=== PATIENT | female | born 1995 | race Caucasian/White ===

== ENCOUNTER 2020-06-11 08:10 | Outpatient (CLI) | payer OTHER ==
[2020-06-11] MEDS ORDERED: GADOBUTROL 7.5 MMOL/7.5 ML VIAL ONE (08:40)
[2020-06-11] MEDS ORDERED: GADOBUTROL 7.5 MMOL/7.5 ML VIAL IVP ONE (09:21)
--- NOTE | 2020-06-11 10:09 | MRI Report ---
PROCEDURE: Brain W/WO INDICATIONS: VERTIGO, DIZZINESS, GIDDINESS CONTRAST: IV CONTRAST: Gadavist ml: 5 TECHNIQUE: Noncontrast axial T1 spin echo, axial T2 fast spin echo, sagittal and axial FLAIR, coronal T2 fast sp in echo, axial gradient echo, axial diffusion and ADC through the brain. After the administration of contrast, axial and coronal T1 spin echo with fat saturation through the brain. COMPARISON: None. FINDINGS: Image quality: Excellent. CSF spaces: Basal cisterns are patent. No extra-axial fluid collections. Ventricles are normal in size and shape. Brain: No midline shift. No intracranial bleeds or masses. No abnormal intracranial enhancement. There is cerebral volume loss for age. There is periventricular white matter chronic small vessel is chemic change. The brainstem appears normal. Diffusion-weighted images demonstrate no acute ischemi c insults. No chronic ischemic insults. Normal intravascular flow voids are present. Skull and face: Calvarial marrow is normal in signal. Orbits appear normal. Sinuses: Sinuses and mastoids appear clear. IMPRESSION: Normal for age, source of current symptomatology is not found. No mass or hydrocephalus is seen, no ischemic injury or inflammatory process is found. Reviewed by: Pankaj Zuleta MD on 06/11/2020 10:07 AM PDT Approved by: Pankaj Zuleta MD on 06/11/2020 10:07 AM PDT Station ID: [id number]
== END 2020-06-11 08:11 | disposition home or self-care (01) ==
LOC: DI 08:10
PROVIDERS: ATTEND Student in an Organized Health Care Education/Training Program
DX: R42 Dizziness and giddiness (principal)
CPT/HCPCS: 70553; A9585

== ENCOUNTER 2020-09-13 12:40 | Outpatient (CLI) | payer OTHER ==
[2020-09-13 13:31] VITALS: BP 102/68
--- NOTE | 2020-09-13 13:31 | SLEEP CARE CONSULTATION ---
Information from patient questionnaire entered by Janet Clark. I have reviewed and concur with the information entered by Janet Clark. This document represents the service I personally performed and the decisions made by me, Amalia Camejo ARNP. History of Present Illness Service Date and Time: 09/13/2020 1240 Reason for Visit: New patient Chief Complaint: reports: Unrefreshed sleep, Excessive daytime sleepiness, Fatigue, Other (vertigo caused by fatigue). denies: Insomnia, Snoring, Observed pauses in breathing, Frequent awakenings at night (She does have to get up for her 18 month old daugther and she wakes up with her in her bed without recol lection of bringing her there) Date of Onset: 11 months Usual bedtime: 9pm; 8 pm on work days Time it takes to fall asleep: 15-30 minutes Snores at night: No Observed to quit breathing while asleep: No Sleeps alone due to snoring: No Number of times waking at night: 1-2 Reasons for waking at night: reports: Other (just wake up) Toss, Turn, or Twitch while sleeping: No Recalls having dreams: Yes Usually gets out of bed at: 8 am; 5 am 3 days a week for work Feels refreshed in the morning: No Morning headache: Yes (wakes up with dizziness) Sleepy or fatigued during the day: Yes Ever fallen asleep while driving: No Takes day naps: No Dreams during day naps: No Prior sleep studies: No Additional HPI information: I had the pleasure of seeing SHREYAS ANTONIO today regarding the possibility of her having a sleep disorder. Her current complaints are a history of vertigo caused by fatigue. Since September, she has been having vertigo caused by migraines according to neurologist who thinks they are caused by fatigue. She has history of being tired all the time. She wakes up tired and angry. She gets a burst of energy about 10 AM and then is tired again by late afternoon. She is unable to take naps, she can lay down but will not fall asleep. She does not snore or have any witness pauses in breathing. She states she wakes up dizzy nearly every morning which is indicative of her headaches. She states the more tired she is the more likely she will get vertigo. Also if she is very hungry. She has a mother and sister who both snore but have no history of sleep apnea. She does have anxiety. She states she gets up with her 18 month old daughter during the night. She wakes up the her daughter in her bed every morning without remembering bringing her to her bed. Her daughter would not be unable to get into her mother's bed without help and her father (who is on CPAP) does not get up with her at night. - Parasomnia Symptoms Ever been unable to move upon waking from sleep: No Walks in sleep: Yes (unsure but she doesn't remember bring daughter to bed during night) Talks in sleep: Yes Ever acted out dreams in sleep: Yes Ever felt weak in the knees when startled or emotional: No Bothered by creepy, crawly, restless sensations in legs: No Problems with memory or concentration: No Subjective Initial [place] Sleepiness Scale score: 5 (in 2019) Past Medical History Past Medical History: reports: Anxiety, Other (migraines with vertigo (vertigo 5-6 times a day)). 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 Patient is and lives in [place]. Have you smoked in the past 12 months: Yes Cigarettes per day (20/pack): 5 Years of smokin Smoking Pack Years: 2.0 Alcohol use: No Caffeine use: Yes Caffeine amount and frequency: once a day; Redbull in morning, soda with dinner Family History Family history of sleep disordered breathing: No Family Hx Sleep Apnea: Mother: Snoring, Sibling: Snoring Allergies and Home Medications Drug allergies reviewed: Yes (NKDA) Home medication list reviewed: Yes (no medications) Review of Systems Cardiovascular: denies: high blood pressure, palpitations, irregular heart rate or pulse Gastrointestinal: reports: heartburn (occasional) Neurological: reports: headaches, other (vertigo). denies: head trauma Psychiatric: reports: anxiety Ear/Nose/Throat: reports: tonsillectomy, wisdom teeth removed. denies: nasal congestion, sinus problems, nose bleeds, dry mouth/throat Endocrine: reports: sluggishness Musculoskeletal: reports: back pain Immunologic: denies: allergies to food or environment Physical Exam Blood Pressure: 102/68 Cuff size: wrist Heart Rate: 87 O2 Saturation: 100 Height: 5 ft 1.5 in Weight: 121 lb Body Mass Index: 22.4 BMI Classification: Healthy weight Neck circumference: 12.2 (inches) Nostrils: patent to airflow Turbinates: swollen Septum: midline Mouth and throat: normal Uvula visualization: 100% Mallampati Class I Tongue: enlarged in size with teeth francois on lateral edges Tonsils: absent bilaterally Heart: regular rate and rhythm Lungs: clear bilaterally Impression and Plan 1. Suspected Obstructive Sleep Apnea-Hypopnea Syndrome, as suggested by a histor y of morning headache with dizziness presentation, unrefreshed sleep, and excessive daytime sleepiness. I reviewed with patient that a narrow oropharynx and obesity are common predisposing factors for obstructive sleep apnea-hypopnea syndrome. I recommend proceeding to polysomnography to confirm the diagnosis and to assess severity. If the patient has significant sleep disordered breathing, a manual CPAP titration study will also be performed to find the optimal treatment pressure. I informed the patient of what the sleep studies involve and after some discussion, obtained agreement to proceed. The pathophysiology of obstructive sleep apnea-hypopnea syndrome was discussed with the patient and health risks of cardiovascular and cerebrovascular disease if not treated. Risks of drowsy driving discussed in detail and patient advised to avoid long distance driving and to ladle puller at the first sign of drowsiness. Patient agreed to plan. * Schedule polysomnography +- manual CPAP titration study and return in 1-2 weeks after the study to discuss result and initiate therapy. * Avoid long distance driving or driving when feeling sleepy. * Avoid alcohol, sedative and muscle relaxant around bedtime. * Attempt to lose weight. * Review instructions provided by trained office staff on how to prepare for the sleep study. * Return for follow-up after sleep study completed. Visit Type: In Office Time Spent with Patient (minutes): 32 Provider Statement: I spent 100% of the Face to Face Visit with the patient with greater than 50% spent counseling the patient and coordination of care.
== END 2020-09-13 12:41 | disposition home or self-care (01) ==
LOC: SC 12:40
PROVIDERS: ATTEND Nurse Practitioner Family
DX: R51.9 Headache, unspecified (principal); G47.8 Other sleep disorders; G47.10 Hypersomnia, unspecified; R42 Dizziness and giddiness
CPT/HCPCS: 99203; 99212

== ENCOUNTER 2020-09-28 08:14 | Outpatient (CLI) | payer OTHER | END 2020-09-28 08:15 | disposition home or self-care (01) | LOC: SC 08:14 | PROVIDERS: ATTEND Nurse Practitioner Family | DX: G47.10 Hypersomnia, unspecified (principal); G47.8 Other sleep disorders; R53.83 Other fatigue; R51.9 Headache, unspecified | CPT/HCPCS: 95806 ==

== ENCOUNTER 2020-10-05 11:09 | Outpatient (CLI) | payer OTHER ==
--- NOTE | 2020-10-05 11:31 | SLEEP CARE CONSULTATION ---
Information from patient questionnaire entered by Janet Clark. I have reviewed and concur with the information entered by Janet Clark. This document represents the service I personally performed and the decisions made by , Amalia Camejo ARNP. History of Present Illness Service Date and Time: 10/05/2020 110 Initial [place] Sleepiness Scale score: 5 (in 2019) Current [place] Sleepiness Scale score: 4 Additional HPI information: SHREYAS ANTONIO returns for follow up and results of the recently performed home sleep study. The patient was informed of the following findings: She had no significant sleep disordered breathing with an average AHI of 1.8 and lashonda oxygen saturation of 88%. There was some signal loss at end of test but there was adequate time accomplished for the study results. I explained the pathophysiology behind obstructive sleep apnea. Patient does not have sleep apnea and was advised how weight gain could increase the risk of developing sleep apnea in the future. Patient has light snoring. Snoring can be reduced by weight loss. Weight loss is best achieved with diet consult. Patient instructed to contact PCP for referral. Snoring can also be treated with an oral appliance from a dentist. Advised to check insurance coverage. In addition, an ENT evaluation can be do to see if other treatment is indicated. Patient counseled not drink alcohol less than 4 hours before bedtime as it can increase snoring and apnea. Patient was cautioned about risks of drowsy driving until sleepiness symptoms resolve. Sleep Study - Results Type of Sleep Study: Home sleep study Prior sleep studies: No Polysomnography/Home Sleep Study results: Physician Impression: The quality of the study is fair due to loss of airflow signal near the end of the test.. The length of the study is adequate (> 240 minutes). Please also see the tabulated and graphic data. 1. No significant sleep disordered breathing, with an AHI of 1.8/hr and lashonda SaO2 of 88%. During the study, the patient had 7 apneas (7 obstructive, 0 central, 0 mixed) and 8 hypopneas. The longest episode lasted 48.5 seconds. The few respiratory events occurred independently of sleep stage and body position (supine AHI was 1.9 and non-supine, 1.30). 2. Hypoxemia (ICD-10 R09.02), minimal, with the lowest oxygen saturation of 88 % and 0.4 minutes with SaO2 under 90%. Baseline oxygen saturation was normal (Average oxygen saturation was 96%). Allergies and Home Medications Home medication list reviewed: Yes (no changes) Review of Systems Review of systems same as previous: Yes (no changes) Physical Exam Heart Rate: 85 O2 Saturation: 98 Height: 5 ft 1.5 in Weight: 119 lb Body Mass Index: 22.1 BMI Classification: Healthy weight Impression and Plan 1. Snoring, light, but no significant sleep disordered breathing. Patient advised that often weight loss will reduce snoring as well as apnea risk. An oral appliance can also be used for snoring. This would require a dental consultation. Patient cautioned not to use other online appliances as can cause bite issues. A list of accredited dentists in area and one local dentist who makes oral appliances given. Patient is advised to check if insurance will cover. An ENT consult can also be helpful to determine if any other treatment is an option. 2. Vertigo, unspecified. She is getting work up for her vertigo that is worse with fatigue. She will continue follow up with her present physicians. * Follow up with present physicians * Avoid alcohol consumption near bedtime * The patient is cautioned about driving until sleepiness is completely resolved. * Return as needed for follow up. Visit Type: In Office Time Spent with Patient (minutes): 14 Provider Statement: I spent 100% of the Face to Face Visit with the patient with greater than 50% spent counseling the patient and coordination of care.
== END 2020-10-05 11:10 | disposition home or self-care (01) ==
LOC: SC 11:09
PROVIDERS: ATTEND Nurse Practitioner Family
DX: R53.83 Other fatigue (principal); R42 Dizziness and giddiness; G47.10 Hypersomnia, unspecified
CPT/HCPCS: 99212

== ENCOUNTER 2020-11-15 12:35 | Day surgery (SDC) | payer OTHER ==
[2020-11-15] MEDS ORDERED: LACTATED RINGERS 1,000 ML IV ONE ×2 (12:49→17:57)
[2020-11-15] MEDS ORDERED: GABAPENTIN 400 MG CAPSULE ONE (12:55)
[2020-11-15] MEDS ORDERED: CELECOXIB 100 MG CAPSULE PO ONE (12:55)
[2020-11-15] MEDS ORDERED: ACETAMINOPHEN 1,000 MG/100 ML 100 ML IV ONE (12:56)
[2020-11-15 13:04] LABS: HCG UR QUAL NEGATIVE
--- NOTE | 2020-11-15 13:58 | ANESTHESIA ---
Pre-Anesthesia VS, & Labs - Diagnosis desired infertility - Procedure Lap Salpingectomy Vital Signs: Temp Pulse Resp BP Pulse Ox 36.9 C 83 16 115/72 99 11/15/20 13:02 11/15/20 13:02 11/15/20 13:02 11/15/20 13:02 11/15/20 13:02 Height: 5 ft 1 in Weight (kg): 53.5 kg Body Mass Index: 22.2 BMI Classification: Healthy weight - NPO >8 hours, Other Last Fluid Intake: sip of black coffee at 11 - Is Patient ?: No - Lab Results Current Lab Results: Laboratory Tests 11/15/20 13:24: POC Whole Bld Glucose 77 Home Medications and Allergies Home Medications: Ambulatory Orders Acetaminophen [Tylenol] 650 mg PO Q6H PRN 11/11/20 Acetaminophen [Tylenol] 650 mg PO Q6H PRN 11/11/20 Allergies/Adverse Reactions: Allergies Allergy/AdvReac Type Severity Reaction Status Date / Time No Known Drug Allergies Allergy Verified 11/15/20 13:18 Anes History & Medical History - Anesthetic History Family history of Anesthesia Complications: Denies Family history of Malignant Hyperthermia: Denies - Medical History Cardiovascular: reports: None Pulmonary: reports: None Gastrointestinal: reports: None Urinary: reports: None Musculoskeletal: reports: None Endocrine/Autoimmune: reports: None Skin: reports: None Psychosocial: reports: No issues indicated History of Cancer?: No - Surgical History Eyes Ears Nose Throat (EENT): reports: Tonsil/Adenoidectomy Exam Dental: WNL Mouth Openin Fingerbreadth Neck Mobility: Normal Mallampati classification: I Thyromental Distance: 4-6 cm Respiratory: Lungs clear Cardiovascular: Regular rate Abdomen: Normal bowel sounds Extremities: No clubbing Neurological: Normal gait Mental/Cognitive Status: Alert/Oriented X3 Cognitive Status: Within normal limits Plan Anesthesia Type: General Consent for Procedure(s) Verified and Reviewed: Yes Code Status: Attempt Resuscitation ASA classification: 1-Healthy patient Is this case an emergency?: No
[2020-11-15] MEDS ORDERED: ATROPINE ABBOJECT 1 MG/10 ML SYRINGE IVP PRN (15:37)
[2020-11-15] MEDS ORDERED: NALOXONE 0.4 MG/ML VIAL IVP PRN (15:37)
[2020-11-15] MEDS ORDERED: fentaNYL 100 MCG/2 ML VIAL IVP PRN (15:37)
[2020-11-15] MEDS ORDERED: MORPHINE 2 MG/ML CARPUJECT IVP PRN (15:37)
[2020-11-15] MEDS ORDERED: ONDANSETRON 4 MG/2 ML VIAL IVP PRN (15:37)
[2020-11-15] MEDS ORDERED: ePHEDrine 50 MG/ML VIAL IVP PRN (15:37)
[2020-11-15] MEDS ORDERED: HYDROmorphone 0.5 MG/0.5 ML SYRINGE IVP PRN (15:37)
[2020-11-15] MEDS ORDERED: METOCLOPRAMIDE 10 MG/2 ML VIAL IVP PRN (15:37)
[2020-11-15] MEDS ORDERED: ROCURONIUM 50 MG/5 ML VIAL ONE (15:38)
[2020-11-15] MEDS ORDERED: ONDANSETRON 4 MG/2 ML VIAL ONE (15:38)
[2020-11-15] MEDS ORDERED: LIDOCAINE-PF 2% 10 ML AMP SUBQ ONE (15:38)
[2020-11-15] MEDS ORDERED: DEXAMETHASONE 4 MG/ML VIAL ONE (15:38)
[2020-11-15] MEDS ORDERED: SUGAMMADEX 200 MG/2 ML VIAL IVP ONE (15:38)
[2020-11-15] MEDS ORDERED: PROPOFOL 200 MG/20 ML VIAL IVP ONE (15:38)
[2020-11-15] MEDS ORDERED: KETOROLAC 30 MG/ML VIAL ONE (15:38)
[2020-11-15] MEDS ORDERED: MIDAZOLAM 2 MG/2 ML VIAL ONE (15:47)
[2020-11-15] MEDS ORDERED: LACTATED RINGERS 1,000 ML IV SCH (16:00)
[2020-11-15] MEDS ORDERED: BUPIVACAINE 0.5% PF 30 ML VIAL ONE (17:01)
[2020-11-15] MEDS ORDERED: HYDROcod/ACETAM 10 MG/325 MG TABLET PO PRN (17:52)
[2020-11-15] MEDS ORDERED: BUPIVACAINE 0.5% PF 30 ML VIAL INFIL ONE (17:52)
--- NOTE | 2020-11-15 17:57 | OPERATIVE REPORT ---
Operative Report - General Procedure Date: 11/15/20 Planned Procedure: Laparoscopic bilateral salpingectomies Pre-Op Diagnosis: Undesired fertility Procedure Performed: LINDA Post Op Diagnosis: LINDA - Procedure Note Primary Surgeon: Izzy Secondary Surgeon: Leesa Anesthesia Provider: Sally Anesthesia Technique: General ET tube Pathology: posrtions of both fallopian tubes IV Fluids (mL): 1,000 Estimated Blood Loss (mL): 5 Indications: Undesired fertility Findings: Exam under anesthesia: The uterus was of normal size, shape and consistency and anteverted and the adnexae were benign. Operative findings: There was about 5ml of dark blood in the anterior and posterior culdesacs consistent with menses. The uterus, tubes, ovaries, anterior and posterior cul de sacs, liver edge and gall bladder were all normal in appearance. The appendix was searched for but not found. Complications: none - Other Other Information/Narrative: The patient was brought to the operating room and placed supine on the operating table. She was given general oral endotracheal anesthesia and prepped and draped in the usual sterile manner in low lithotomy yellow fin stirrups. A time out was performed. An exam under anesthesia was performed, after which a speculum was introduced into her vagina and a Hulka tenaculum placed. Attention was turned to the abdomen where the umbilicus was infiltrated with 5 ml of 0.5% Marcaine and a stab incision was made. A Verress needle was inserted into the abdominal cavity and its position verified by loss of resistance. The abdomen was inflated to 2L of CO2 and the Verress needle was removed and replaced by a 5mm laparoscopic trocar and sleeve with the laparoscope in place, allowing direct visualization of entry into the abdomen. 5mm trocars were placed in each lower quadrant after local anesthesia with 3ml of 0.5% Marcaine and a stab incision. Each tube was coagulated, cut sequentially to the cornu and removed through the 5mm port under direct visualization. When hemostasis was judged adequate, the abdomen was desufflated to the extent possible, and the incisions closed with 0000 Monocryl and Dermabond. The Hulka tenaculum was removed from the vagina and the patient was awakened and taken to the recovery room in stable condition.
[2020-11-15] MEDS ORDERED: HYDROmorphone 0.5 MG/0.5 ML SYRINGE ONE (18:12)
[2020-11-15] MEDS ORDERED: KETOROLAC 30 MG/ML VIAL IM STA (18:16)
[2020-11-15] MEDS ORDERED: KETOROLAC 15 MG/ML VIAL ONE (18:22)
[2020-11-15 18:31] VITALS: BP 117/80
--- NOTE | 2020-11-15 19:20 | ANESTHESIA POST OP EVALUATION ---
Anesthesia Post Eval - Post Anesthesia Eval Vitals: Last Vital Signs Temp 36.7 C 11/15/20 18:24 Pulse 80 11/15/20 18:30 Resp 13 11/15/20 18:30 BP 117/80 11/15/20 18:30 Pulse Ox 98 11/15/20 18:30 CV Function Including HR & BP: positive: Stable Pain Control: positive: Satisfactory Nausea & Vomiting: positive: Negative Mental Status: positive: Baseline Respiratory Status: Airway Patent Hydration Status: Satisfactory
== END 2020-11-15 12:36 | disposition home or self-care (01) ==
LOC: SDS 12:35
PROVIDERS: ATTEND Obstetrics & Gynecology
PROC: 0UT74ZZ Resection of Bilateral Fallopian Tubes, Percutaneous Endoscopic Approach (ICD-10-PCS; principal; 2020-11-15 13:45)
DX: Z30.2 Encounter for sterilization (principal); F17.290 Nicotine dependence, other tobacco product, uncomplicated
CPT/HCPCS: 58661; 81025; J0131; J1170; J7120